=== PATIENT | female | born 1940 | race Caucasian/White ===

== ENCOUNTER 2019-08-07 04:37 | Inpatient (IN) ==
--- NOTE | 2019-08-07 04:56 | EKG Report ---
Test Performed on : 08/07/2019 04:53:03 AM Test Reason : syncope Blood Pressure : / mmHG Vent. Rate : 062 BPM Atrial Rate : 062 BPM P-R Int : 174 ms QRS Dur : 062 ms QT Int : 432 ms P-R-T Axes : 090 085 079 degrees QTc Int : 438 ms Atrial-paced rhythm with premature supraventricular complexes. Possible Anterior infarct (cited on or before 15-JUL-2017) Abnormal ECG When compared with ECG of 15-JUL-2017 12:41, Electronic atrial pacemaker has replaced Sinus rhythm. Nonspecific T wave abnormality no longer evident in Anterolateral leads Unconfirmed Result
--- NOTE | 2019-08-07 05:19 | PROVIDER DOCUMENTATION ---
HPI-General Adult - General Chief Complaint: Syncope Stated Complaint: HIGH BP/SYNCO[PE/RIGHT SHOULDER INJURY Time Seen by Provider: 08/07/19 05:02 Source: patient, family Allergies/Adverse Reactions: Patient Allergies Allergy/AdvReac Type Severity Reaction Status Date / Time codeine Allergy Unknown Unknown Verified 08/07/19 05:03 Penicillins Allergy Unknown Unknown Verified 08/07/19 05:03 Sulfa (Sulfonamide Allergy Unknown Unknown Verified 08/07/19 05:03 Antibiotics) adhesive tape AdvReac Intermediate rips skin Verified 08/07/19 05:03 off Home Medications: Home Medication List Medication Instructions Recorded Confirmed Last Taken Type Apixaban [Eliquis] 2.5 mg PO BID 04/30/18 08/07/19 08/06/19 History Carvedilol 12.5 mg PO BID 08/07/19 08/07/19 08/06/19 History Galantamine HBr [Galantamine ER] 24 mg PO DAILY 08/07/19 08/07/19 08/06/19 History LISINOpril [Prinivil] 10 mg PO DAILY 08/07/19 08/07/19 08/06/19 History Methylcellulose [Fiber] 1,000 mg PO HS 08/07/19 08/07/19 08/06/19 History - History of Present Illness -Gen Adult Nature of Presenting Problems: brought in by EMS. Pt says she always has memory problems. Yesterday afternoon, she had nausea, diarrhea, no vomiting. Her daughter came over to stay with her tonight, was sleeping on floor. Pt says got up twice to go to , no problems. However, this last time, she passed out, injuring her R shoulder. Denies head t rauma, denies LOC, but later, rlates that her daughter told her that she was unresponsive for a brief time, and that is why she called EMS. Denies CP, Denies SOB. Nausea has rsolved. No pain other that R shoulder Daughter called later. Says mother was totally unresponsive, eyes were blank, in fact, she thought mother had Review of Systems - Adult - REVIEW OF SYSTEMS - ADULT Constitutional: reports: no symptoms reported Eyes: reports: no symptoms reported Ears, Nose, Mouth & Throat: reports: no symptoms reported Cardiovascular: reports: no symptoms reported Respiratory: reports: no symptoms reported Gastrointestinal: reports: see HPI Genitourinary: reports: no symptoms reported Musculoskeletal: reports: see HPI Integumentary: reports: no symptoms reported Neurological: reports: see HPI Psychiatric: reports: no symptoms reported Endocrine: reports: no symptoms reported Hematologic/Lymphatic: reports: no symptoms reported Allergic/Immunologic: reports: no symptoms reported Past History - Adult - PAST MEDICAL HISTORY-ADULT Review of Records: reports: Medications Reviewed Major Childhood Illnesses: reports: denies history Cardiovascular: reports: A-Fib, HTN Respiratory: reports: denies history Gastrointestinal: reports: denies history Genitourinary: reports: denies history Musculoskeletal: reports: denies history Neurological: reports: denies history Endocrine/Immune: reports: denies history Physical Exam-General - PHYSICAL EXAM-ADULT Initial Vital Signs Reviewed: Yes - CONSTITUTIONAL General Appearance: appears well, alert, no apparent distress - EYES Eyes: PERRL/EOMI, pink conjunctivae - HEAD, EARS, NOSE, MOUTH & THROAT HENMT: normocephalic/atraumatic, moist mucous membranes, normal ENT inspection, pharynx normal - RESPIRATORY Respiratory: lungs clear, normal breath sounds, no pleuratic chest pain, no respiratory distress - CARDIOVASCULAR Cardiovascular: regular rate, rhythm, no edema - GASTROINTESTINAL (ABDOMEN) Abdominal Exam: normal bowel sounds, non tender, soft - MUSCULOSKELETAL Extremity: tenderness (mod to R humeral head area. No other extremity tenderness) Peripheral Pulses: radial (R): 2+, radial (L): 2+ DTR: bicep (R): 2+, bicep (L): 2+, knee (R): 2+, knee (L): 2+, ankle (R): 2+, ankle (L): 2+ - SKIN Integumentary: normal color, normal turgor, warm/dry - NEUROLOGIC Neurologic: grossly normal, no motor/sensory deficits, other (CN II-XII intact) - PSYCHIATRIC Psych/Mental Status: normal mood/affect, normal thought content, normal thought process, oriented x 3 Progress - PLAN OF CARE/RESULTS Progress/Plan/Lab Results: Vital Signs - 8 hr 08/07/19 04:39 Temperature 97.8 F Pulse Rate 72 Respiratory Rate 18 Blood Pressure 109/61 O2 Sat by Pulse Oximetry 99 Orders Category Date Time Status EKG [EKG] Stat Ther 04/15/20 04:47 Draft Result Diagrams: 08/07/19 05:21 08/07/19 05:21 - REASSESSMENT Reassessment #1 Time Reassessed: 08:18 Status: improving (Seen karel james by me. Case discussed with Dr. Schaffer at shift change, had non-displaced right clavicle fracture and syncopal episode. Awaiting Chest X-ray and labs. Etienne Stevenson, from [employer] came out to interrogate pacemaker and found it to be working correctly without any cardiac events or failures to pace.) Reassessment #2 Time Reassessed: 09:37 Status: improving (Given IV rocephin and zithromax for CAP. Given also ultram for clavicle fracture. Given sling for clavicle fracture) - EKG 1 Time of EKG reading by physician:: 04:55 EKG Read and Signed by:: Thien Schaffer EKG Interpretation (*Must complete 3 of following elements*): Abnormal QRS: poor R wave progression ST Wave: normal - XRAY 1 XRAY: Right XRAY Study: Shoulder Impression: Abnormal (EXAM: SHOULDER-RIGHT HISTORY: fall TECHNIQUE: Shoulder three views including an axillary Y-view COMPARISON: None. FINDINGS: There is a fracture to the distal clavicle at the acromioclavicular joint. No significant separation. No other fracture about the shoulder. IMPRESSION: Nondisplaced distal clavicle fracture. Electronically signed by Greg Tyler 08/07/2019 6:26 AM 08/07/19 0626 Interpreting Physician: Greg Tyler MD Dictated Date/Time: 08/07/19 0623 cc: Thien Schaffer MD; Carolee Arredondo MD) 2 XRAY Study: Chest Impression: Abnormal, See EMR Report ( CHEST-PORTABLE - 08/07/2019 INDICATION: syncope COMPARISON: 02/20/2018 FINDINGS: Stable left-sided pacemaker in good position. There is some faint infiltrate in the lingula. Stable hyperexpanded lungs compatible with COPD. Heart size and pulmonary vascularity is normal. No pneumothorax or pleural effusion. IMPRESSION: Faint infiltrate in the lingula suggesting pneumonia. Advanced COPD. Electronically signed by Jose Herman 08/07/2019 8:54 AM 08/07/19 0854 Interpreting Physician: Jose Herman MD Dictated Date/Time: 08/07/19 0853 cc: Jn France MD; Carolee Arredondo MD) - CT/MRI 2 CT Study: Head Impression: Normal (EXAM: CT HEAD W/O CONTRAST HISTORY: fall, ALOC TECHNIQUE: CT head without contrast COMPARISON: 07/15/2017 FINDINGS: No parenchymal hemorrhage. No epidural or subdural hematoma. No subarachnoid hemorrhage. There are chronic microvascular ischemic changes with possible old lacunar dyspnea the anterior horns of the internal capsules. The appearance is similar to the prior exam. No mass identified on this noncontrasted exam. No hydrocephalus. No skull fracture. IMPRESSION: No hemorrhage. No injury. This exam was performed using automated exposure control, adjustment of mA or kV according to patient size, and/or use of iterative reconstruction technique. Electronically signed by Greg Tyler 08/07/2019 6:22 AM 08/07/19 0622 Interpreting Physician: Greg Tyler MD Dictated Date/Time: 08/07/19 0619 cc: Thien Schaffer MD; Carolee Arredondo MD) - CONSULTS/PCP/HOSPITALIST Notification #1 *Consult/PCP/Hospitalist*: Jewell Time Discussed: 08:57 Consult Disposition: other (will see on floor) #2 Consult: LIZA Horta Time Discussed: 09:38 Consult Disposition: Will see in ED, Admit - CHANGE OF SHIFT REPORT (ED Provider) 1 Report Given and Care Transferred to:: Román Time of Transfer: 07:00 Items Pending: Labs, Other (pacemaker interrogation) Departure - Departure Date of Disposition Decision: 08/07/19 Time of Disposition Decision: 09:39 DIAGNOSIS: Syncope and collapse, Lingular pneumonia Right clavicle fracture Qualifiers: Encounter type: initial encounter Clavicle location: lateral end Fracture type: closed Fracture alignment: nondisplaced Qualified Code(s): S42.034A - Nondisplaced fracture of lateral end of right clavicle, initial encounter for closed fracture Disposition: ADMITTED INPATIENT 09 Certified Medical Emergency: Emergent Condition: Stable Referrals and Follow-Ups: Carolee Arredondo MD [Primary Care Provider] - Jesse Hernandez MD [ACTIVE STAFF PHYSICIAN] - - Critical Care Note This patient required my direct & personal management of CC.: No Attestation - Physician/ KEVAN Attestation Patient care was provided by Advanced Practice Provider:: No The physician spent face to face time with patient:: Yes Advanced Practice Provider documentation review:: Supervising physician onsite and consulted in the evaluation and care of this patient. The physician did have a face to face encounter with the patient.
[2019-08-07 06:19] LABS: BASO# 0.05 X1000 (0.0-0.2); BASO% 0.6 % (0.0-0.8); EOS% 3.8 % (0.0-10.0); HEMATOCRIT 46.1 % (37.0-47.0); HEMOGLOBIN 15.3 g/dL (12.0-16.0); IMM GRAN# 0.04 X1000 (0.0-0.04); IMM GRAN% 0.5 % (0.0-0.5); LYMPH# 1.62 X1000 (1.2-3.4); LYMPH% 20.7 % (20.5-51.1); MCH 30.6 PG (27-31); MCHC 33.2 g/dL (33-37); MCV 92.2 FL (81-99); MONO# 0.45 X1000 (0.11-0.59); MONO% 5.8 % (1.7-9.3); MPV 10.8 FL (7.4-10.4); NEUT# 5.36 X1000 (1.4-6.5); NEUT% 68.6 % (42.2-75.2); PLT 62 X1000 (130-400); RDW 13.9 % (11.5-14.5); WBC 7.82 X1000 (4.8-10.8)
--- NOTE | 2019-08-07 06:24 | Diag Imaging Result Doc PS360 ---
EXAM: CT HEAD W/O CONTRAST HISTORY: fall, ALOC TECHNIQUE: CT head without contrast COMPARISON: 07/15/2017 FINDINGS: No parenchymal hemorrhage. No epidural or subdural hematoma. No subarachnoid hemorrhage. There are chronic microvascular ischemic changes with possible old lacunar dyspnea the anterior horns of the internal capsules. The appearance is similar to the prior exam. No mass identified on this noncontrasted exam. No hydrocephalus. No skull fracture. IMPRESSION: No hemorrhage. No injury. This exam was performed using automated exposure control, adjustment of mA or kV according to patient size, and/or use of iterative reconstruction technique. Electronically signed by Greg Tlyer 08/07/2019 6:22 AM
--- NOTE | 2019-08-07 06:28 | Diag Imaging Result Doc PS360 ---
EXAM: SHOULDER-RIGHT HISTORY: fall TECHNIQUE: Shoulder three views including an axillary Y-view COMPARISON: None. FINDINGS: There is a fracture to the distal clavicle at the acromioclavicular joint. No significant separation. No other fracture about the shoulder. IMPRESSION: Nondisplaced distal clavicle fracture. Electronically signed by Greg Tyler 08/07/2019 6:26 AM
[2019-08-07] MEDS ORDERED: ULTRAM PO ONE (08:23)
[2019-08-07] MEDS ORDERED: TORADOL IV ONE (08:23)
[2019-08-07 08:24] LABS: URINE SOURCE CATH
[2019-08-07] MEDS ORDERED: NS 1,000 ML IV ONE (08:24)
[2019-08-07 08:33] LABS: BILIRUBIN URINE NEGATIVE (NEGATIVE); BLOOD URINE TRACE (NEGATIVE); COLOR YELLOW; GLUCOSE URINE NEGATIVE (NEGATIVE); KETONE URINE TRACE mg/dL (NEGATIVE); LEUKOCYTES URINE NEGATIVE (NEGATIVE); NITRITE URINE NEGATIVE (NEGATIVE); PH URINE 6.5; PROTEIN URINE 100 mg/dL (NEGATIVE); SP GRAVITY URINE 1.024; TURBIDITY URINE CLEAR (CLEAR); UROBILINOGEN URINE NORMAL (NORMAL)
[2019-08-07 08:34] LABS: UR EPITHELIAL CELLS <10 /HPF (<10); URINE BACTERIA NEGATIVE /HPF; URINE RBC <10 /HPF (<10); URINE WBC <10 /HPF (<10)
[2019-08-07 08:36] LABS: UR AMPHETAMINES QUAL NONE DETECTED (NONE DETECT); UR BARBITUATES QUAL NONE DETECTED (NONE DETECT); UR BENZODIAZEPIN QUAL NONE DETECTED (NONE DETECT); UR CANNABINOIDS QUAL NONE DETECTED (NONE DETECT); UR COCAINE QUAL NONE DETECTED (NONE DETECT); UR METHADONE QUAL NONE DETECTED (NONE DETECT); UR OPIATES QUAL NONE DETECTED (NONE DETECT); UR OXYCODONE QUAL NONE DETECTED (NONE DETECT); UR PCP QUAL NONE DETECTED (NONE DETECT)
--- NOTE | 2019-08-07 08:56 | Diag Imaging Result Doc PS360 ---
CHEST-PORTABLE - 08/07/2019 INDICATION: syncope COMPARISON: 02/20/2018 FINDINGS: Stable left-sided pacemaker in good position. There is some faint infiltrate in the lingula. Stable hyperexpanded lungs compatible with COPD. Heart size and pulmonary vascularity is normal. No pneumothorax or pleural effusion. IMPRESSION: Faint infiltrate in the lingula suggesting pneumonia. Advanced COPD. Electronically signed by Jose Herman 08/07/2019 8:54 AM
[2019-08-07 09:20] LABS: AGAP 18; ALB/GLOB RATIO 1.5; ALBUMIN 4.3 g/dL (3.5-5.0); ALKALINE PHOSPHATASE 67 U/L (32-104); BUN 15 mg/dL (8-22); CALCIUM 9.7 mg/dL (8.8-10.2); CHLORIDE 92 mmol/L (98-107); COSMO 264; CREATININE 0.8 mg/dL (0.5-0.9); ESTIMATED GFR > 60; GLUCOSE 144 mg/dL (70-104); GOT 26 U/L (10-30); GPT 14 U/L (10-36); POTASSIUM 4.1 mmol/L (3.5-5.1); SODIUM 130 mmol/L (136-145); TCO2 20 mmol/L (25-35); TOTAL BILIRUBIN 0.59 mg/dL (0.20-1.00); TOTAL PROTEIN 7.2 g/dL (6.3-8.3)
[2019-08-07] MEDS ORDERED: ROCEPHIN 1 GM in NS 50 ML IV ONE (09:33)
[2019-08-07] MEDS ORDERED: ZITHROMAX 500 MG/NS 500 MG/250 ML IVPB IV ONE (09:33)
[2019-08-07] MEDS ORDERED: ZOFRAN IV PRN (09:47)
[2019-08-07] MEDS ORDERED: TAMIFLU PO ONE (10:53)
--- NOTE | 2019-08-07 11:24 | HISTORY AND PHYSICAL ---
CHIEF COMPLAINT: Syncopal episode. HISTORY OF PRESENT ILLNESS: This is an 79-year-old female with a prior history of atrial fibrillation, prior syncopal episodes, as well as hypertension. She presented to the emergency room via EMS after having multiple syncopal episodes witnessed per her daughter. Ms. Madrigal is not a good historian. No family members are present, so this history is taken from the ER chart. According to the ER record, the patient got up to go to the bathroom yesterday and fell. The daughter stated she was responsive when she found her, but she said her right shoulder hurt. They attempted to set her up and it was reported the patient's eyes glazed over and she went limp. It is reported that after about 20 seconds she responded. She had 2 more similar episodes like this and the daughter decided to call 911. On arrival to the emergency room, Ms. Madrigal was alert and oriented, cooperative. PAST MEDICAL HISTORY: 1. Atrial fibrillation on chronic anticoagulation. 2. Pacemaker placement. 3. Prior episodes of syncope. 4. Hypertension. PAST SURGICAL HISTORY: Pacemaker placement, hernia repair, and . SOCIAL HISTORY: Denies alcohol, tobacco, or illicit drug use. She has children that are close and that are very active in her care. ALLERGIES: Codeine, penicillin and sulfa with unknown reactions. The patient thinks that nausea may have been the reactions. HOME MEDICATIONS: A list will be obtained. REVIEW OF SYSTEMS: Discussed with the patient with pertinent positives stated in the HPI. She denied any dizziness, any chest pain, any shortness of breath, palpation, any vomiting, diarrhea, constipation, black or bloody vomitus or stools, any hematuria, dysuria, frequency, urgency. PHYSICAL EXAMINATION: GENERAL: This is an 79-year-old female who is lying on the stretcher in the emergency room in no distress. VITAL SIGNS: Blood pressure is 121/60 with a heart rate of 60, respirations are ranging 18 to 20, temperature is 97.8 degrees with O2 saturations that are 99% to 100% on room air. EYES: Pupils are equal, round, react to light. EOMs are intact. Sclerae are anicteric. HEENT: Head is normocephalic, atraumatic. Mucous membranes are moist. NECK: Supple with trachea midline. CARDIOVASCULAR: Regular rate and rhythm. S1, S2 appreciated. She has no lower extremity edema. PULMONARY: Breath sounds are clear with no increased work of breathing noted. Chest rises and falls symmetrically with respiration. GASTROINTESTINAL: Abdomen is soft, nontender, nondistended with bowel sounds in all 4 quadrants. NEUROLOGIC: She is alert. She is oriented. She follows commands. SKIN: Warm and dry. EXTREMITIES: She does have some tenderness to the right humeral head area with a little edema noted. Peripheral pulses are palpable x4 extremities. LABORATORY: WBC is 7.8 with hemoglobin 15.3, hematocrit 46.1, platelets of 62,000. Sodium 130, potassium 4.1, BUN 15, creatinine 0.8, glucose of 144. DIAGNOSTICS: 1. Chest x-ray revealed faint infiltrate in the lingula suggesting pneumonia, advanced COPD. 2. Right shoulder x-ray reveals nondisplaced distal clavicle fracture. 3. A CT of the head reveals no hemorrhage, no injury. 4. An EKG reveals an atrial paced rhythm at a rate of 62. ASSESSMENT AND PLAN: 1. Syncope. We obtain an echocardiogram. The patient has a [employer] pacemaker. The emergency room has call the employee relations representative about, this will be interrogated. Will do orthostatic vital signs. 2. Pneumonia. Blood cultures have been obtained. Will continue azithromycin and Rocephin as started in the emergency room and further antibiotics will be culture driven. 3. Right clavicle fracture. Dr. Villarreal was spoken to by the emergency room physician. We will consult him. Sling has been placed. We will order neurovascular checks to her right arm. 4. Atrial fibrillation. Aware. 5. Thrombocytopenia. We will review her medications, hold appropriate medications. Will hold Eliquis at present. 6. Hypertension. Will continue her home medications. 7. Further treatments pending hospital course. Dictated by LIZA Esquivel for Keith Ledesma MD cc: LIZA Esquivel MD
[2019-08-07 12:53] LABS: INR 1.21; PROTIME 15.5 Seconds (11.0-16.0)
[2019-08-07 14:44] LABS: BANDS 1 % (0-1); EOS 1 % (1-10); LARGE PLATELETS OCCASIONAL; LYMPHS 18 % (21-51); MONO 7 % (1-9); SEGS 71 % (42-75)
--- NOTE | 2019-08-07 15:42 | HISTORY AND PHYSICAL ---
ADDENDUM REPORT SUBJECTIVE: I have seen and examined Ms. Madrigal today. Ms. Madrigal refers to have been feeling fairly okay until yesterday. Early during the day she felt some nauseation and then later on she had 1 episode of vomiting and profuse diarrhea times just 1 time. She says she went to bed feeling better after she vomited. She woke up early this morning and wanted to go and use the restroom then as soon as she got up from the bed and started walking, she felt kind of lightheaded, dizzy, and then she just fell down. She does not remember the circumstances around the fall, but when she fell she could hear her daughter shouting "momma stay there, I am coming, do not get up." She was brought into the emergency room where she was evaluated. Upon presentation she was found to have a blood pressure of 109/61. Unfortunately, orthostatic vitals were not done. At the time of my encounter, I did an orthostatic myself. Lying down was 152/67 with a pulse of 59, sitting up was 165/74 with a pulse of 60 and standing up was 137/68, so despite the systolic was not down by 20 mm per mercury, it was quite abnormal. OBJECTIVE: General: Current physical exam for the most part is completely unremarkable except for mucous membrane that looks slightly dry. Chest: Clear. Cardiovascular: Regular rate and rhythm. The patient has a pacemaker on the left anterior chest wall. Extremities: No edema. Some bruises on the lower extremity. The patient also has the right upper extremity in an orthopedic sling. IMAGING STUDIES: Including a CT scan of the head showed no hemorrhage. Shoulder x-ray shows nondisplaced distal clavicular fracture. A chest x-ray shows a faint infiltrate in the lingula suggesting pneumonia. There is advanced COPD. The patient's screening for flu is positive for influenza A. ASSESSMENT: 1. Syncope, most likely orthostatic hypotension, however, vasovagal reaction and other causes of neurally mediated syncope cannot be entirely ruled out. For now, we are going to continue with gentle hydration overnight and re-evaluate her orthostatic and then go from there. 2. Faint lingular infiltrate concerning for pneumonia. Patient's flu test is positive. At this point, she does not really show any. She is not complaining of any respiratory symptoms. We will treat her with antibiotics and time Tamiflu and wait for the cultures. 3. Hypertension. 4. Clinical volume depletion associated with hyponatremia and hypochloremia. We will continue with the fluid resuscitation. 5. Thrombocytopenia of unclear etiology. I have called the lab and they did not see any clumping, so this seems to be real. We will repeat the test tomorrow. If it continues to be remarkably low, we will get Hematology/Oncology to evaluate if number continue to be low. For now we are going to do LDH, hepatitis panel and iron studies, B12, folate. Please refer to the details of the history and physical that has been dictated by the POKER MACHINE ATTENDANT in the chart. I have discussed the plan with her. I have also discussed my findings and my plan with Ms. Madrigal and she voiced understanding. cc: Keith Ledesma MD [facility]
[2019-08-07] MEDS: NS 1,000 ML IV SCH (16:12)
--- NOTE | 2019-08-07 16:18 | ORTHOPAEDICS CONSULTATION ---
DATE: 08/07/2019 CHIEF COMPLAINT: Right shoulder pain with syncopal episode. HISTORY OF PRESENT ILLNESS: This is an 79-year-old female with a prior history of atrial fibrillation who came to the emergency department for a syncopal episode witnessed by her daughter. It was noted on one of her x-rays in the emergency department that she had a distal clavicle fracture and they consulted orthopedics to come see the patient. PAST MEDICAL HISTORY: Includes: 1. Atrial fibrillation, with chronic anticoagulants. 2. Pacemaker placement. 3. Syncope. 4. Hypertension. PAST SURGICAL HISTORY: She has had pacemaker placement, hernia repair, section. SOCIAL HISTORY: She denies alcohol, tobacco, or illicit drug use. ALLERGIES: She reports she is allergic to codeine, penicillin, sulfa, and adhesive tape. HOME MEDICATIONS: She does not know her home medications at this time. REVIEW OF SYSTEMS: A 12-point review of systems was performed. Pertinent positives listed in the HPI. PHYSICAL EXAMINATION: General: The patient is awake and alert, sitting in the hospital bed in no acute distress. Vital Signs: Temperature 98.5 degrees, pulse rate 60, respiratory rate 16, blood pressure 111/69, oxygen saturation 100% on room air. HEENT: Head is atraumatic, normocephalic. Mucous membranes are moist. Eyes equal, round, and reactive. Neck: Supple. Cardiovascular: At this time, regular rate and rhythm. Pulmonary: There is equal chest expansion, rise and fall. Gastrointestinal: Abdomen is soft, nontender. Extremity Examination: On right upper extremity exam, there is limited range of motion to the right shoulder due to pain. There is tenderness along the distal clavicle. There is some swelling along the right side of the chest as well. There is no bruising or ecchymosis noted. LABS: White blood cells 7.82, blood cells 5, hemoglobin 15.3, hematocrit 46.1, platelets 62,000. INR 1.21. Sodium 130, potassium 4.1, chloride 92, BUN 15, glucose 144, creatinine is 0.8. DIAGNOSTICS: Shoulder x-ray showed nondisplaced distal clavicle fracture to the right shoulder. Chest x-ray revealed some possible pneumonia, infiltrate in the lungs. CT of the head showed no acute injury and no bleeding. ASSESSMENT: 1. Syncope with fall, possible pacemaker involvement, and right distal clavicle fracture that is nondisplaced. 2. Pneumonia. PLAN: We plan to keep her in a sling for her distal clavicle fracture. She will need to have repeat x-rays and follow up with Dr. Villarreal in 1 week in the office. The medical doctor team is treating her pneumonia. Dictated by LIZA Tyler for Familia Villarreal MD cc: LIZA Tyler MD
[2019-08-07 16:55] LABS: URINE SOURCE CLEAN CATCH
[2019-08-07 17:20] LABS: BILIRUBIN URINE NEGATIVE (NEGATIVE); BLOOD URINE MODERATE (NEGATIVE); COLOR YELLOW; GLUCOSE URINE NEGATIVE (NEGATIVE); KETONE URINE TRACE mg/dL (NEGATIVE); LEUKOCYTES URINE NEGATIVE (NEGATIVE); NITRITE URINE NEGATIVE (NEGATIVE); PROTEIN URINE 30 mg/dL (NEGATIVE); SP GRAVITY URINE 1.029; TURBIDITY URINE CLEAR (CLEAR); UROBILINOGEN URINE NORMAL (NORMAL)
[2019-08-07 18:04] LABS: UR EPITHELIAL CELLS <10 /HPF (<10); URINE BACTERIA NEGATIVE /HPF; URINE RBC <10 /HPF (<10)
[2019-08-07 18:09] LABS: URINE CASTS NONE SEEN; URINE CRYSTALS NONE SEEN; URINE SMALL ROUND CELLS TRANS PRESENT; URINE YEAST NONE SEEN
[2019-08-07] MEDS ORDERED: ELIQUIS PO SCH (21:00)
[2019-08-07] MEDS: FIBERCON PO SCH (21:36)
[2019-08-07] MEDS: COREG PO SCH (21:36)
[2019-08-07] MEDS: TAMIFLU PO SCH (21:36)
[2019-08-08 04:48] LABS: RETIC% 1.27 % (0.8-2.1); RETIC-HE 36.8 PG (28.2-36.6)
[2019-08-08 05:07] LABS: IRON SATURATION 25 %; TIBC 242 ug/dL; TOTAL IRON 60 ug/dL (49-151); UNBOUND IRON 182 ug/dL (112-346)
[2019-08-08 05:23] LABS: FERRITIN 88 ng/mL (13-150)
[2019-08-08] MEDS: NS 1,000 ML IV SCH ×2 (06:34→10:24)
[2019-08-08 07:24] LABS: AGAP 12; ALBUMIN 3.8 g/dL (3.5-5.0); BUN 13 mg/dL (8-22); CALCIUM 8.8 mg/dL (8.8-10.2); CHLORIDE 97 mmol/L (98-107); COSMO 262; CREATININE 0.7 mg/dL (0.5-0.9); ESTIMATED GFR > 60; GLUCOSE 93 mg/dL (70-104); PHOSPHORUS 2.8 mg/dL (2.7-4.5); POTASSIUM 3.7 mmol/L (3.5-5.1); SODIUM 131 mmol/L (136-145); TCO2 22 mmol/L (25-35)
[2019-08-08 08:44] LABS: BASO# 0.06 X1000 (0.0-0.2); BASO% 0.9 % (0.0-0.8); EOS# 0.12 X1000 (0.0-0.7); EOS% 1.9 % (0.0-10.0); HEMATOCRIT 36.7 % (37.0-47.0); HEMOGLOBIN 12.1 g/dL (12.0-16.0); LYMPH# 1.49 X1000 (1.2-3.4); LYMPH% 23.3 % (20.5-51.1); MCH 30.7 PG (27-31); MCV 93.1 FL (81-99); MONO# 0.69 X1000 (0.11-0.59); MONO% 10.8 % (1.7-9.3); MPV 11.3 FL (7.4-10.4); NEUT# 4.04 X1000 (1.4-6.5); NEUT% 63.1 % (42.2-75.2); PLT 168 X1000 (130-400); RBC 3.94 XMIL (4.2-5.4); RDW 13.9 % (11.5-14.5)
[2019-08-08] MEDS: TAMIFLU PO SCH ×2 (10:25→21:25)
[2019-08-08] MEDS: COREG PO SCH ×2 (10:25→21:25)
[2019-08-08] MEDS: PRINIVIL PO SCH (10:25)
[2019-08-08] MEDS: ROCEPHIN 1 GM in NS 50 ML IV SCH (10:25)
[2019-08-08] MEDS: ZITHROMAX PO SCH (10:29)
[2019-08-08 11:56] LABS: HEPATITIS PROFILE ACUTE SEE COMMENTS
--- NOTE | 2019-08-08 12:15 | PROGRESS NOTE ---
DATE: 08/08/2019 SUBJECTIVE: I have seen and examined Ms. Madrigal today. Ms. Madrigal refers to be doing well. Denies any new complaints. She said she has not had any more diarrhea. She has also been up to use the restroom and has not had any dizziness or fall. OBJECTIVE: Vital signs: Blood pressure is 122/75, pulse of 60, respirations 16, temperature is 98.9 degrees. Orthostatic vitals: The patient sitting down, blood pressure was 158/68 and standing up it went up to 163/76. General: Ms. Madrigal is an 79-year-old elderly female. She is in bed, no distress. HEENT: Mucosa is pink, slightly dry. Anicteric. Acyanotic. Neck: Supple. Chest: Clear to auscultation. No crepitations. No rhonchi. There is a pacemaker on the left anterior chest wall. Cardiovascular: Regular rate and rhythm. Gastrointestinal: Abdomen is soft, nontender. Bowel sounds present. Extremities: No pedal edema. Central nervous system: Patient is awake, alert, and oriented x3. No focal deficit. Musculoskeletal: The right upper extremity has an orthopedic sling. ASSESSMENT: 1. Syncope on presentation, presumably from orthostatic hypotension. Vitals have now been corrected. The patient still remains slightly volume depleted. We are going to continue with gentle hydration. 2. Left lingular infiltrate concerning for pneumonia with influenza A positive as well. Patient is on antimicrobials and Tamiflu. 3. Hypertension, controlled. 4. Clinical volume depletion associated with hyponatremia. This is improving with IV fluids. 5. Thrombocytopenia, corrected. I presume this was most likely a lab error. The number is up to 168 this morning. 6. Nondisplaced right distal clavicular fracture. The patient has been evaluated by Orthopedics. PLAN: In general, I think Ms. Madrigal is doing a lot better. We are still waiting for the blood culture result, COVID-19 testing before she will be able to be evaluated by Physical Therapy. She has already been seen by Orthopedics in terms of the right shoulder because of the right nondisplaced distal clavicle fracture and they recommend conservative management. cc: Keith Ledesma MD
--- NOTE | 2019-08-08 16:28 | PROGRESS NOTE ---
DATE: 08/08/2019 ADDENDUM: I have spoken extensively with the daughter today who was there at the time Ms. Madrigal apparently had a syncopal episode. According to the daughter, Ms. Madrigal had been having some low abdominal discomfort, and she attributed it to stomach bug and wanted to go and use the restroom when she passed out. According to the daughter, Ms. Madrigal was looking at her, but was nonresponsive; that went on for a couple of seconds. She tried to get her attention. Ms. Madrigal came back, but then as she tried to lift her to put her somewhere better, she was the same. Eyes just went straight through her. She became unresponsive and she looked pale, but there were no tonic seizures. There was no seizure activity. She did not have any incontinence. The episode lasted for about 30 seconds to 45 seconds which all seems to have been a syncopal episode. Immediately after Ms. Madrigal responded well, that is when they came to the emergency room. Upon talking more with the daughter, I was made aware that she called the pacemaker company. They told her that during the time that Ms. Madrigal was having the stomach discomfort and nauseation, she was in atrial fibrillation. The tracing suggests that she was in atrial fibrillation for about 7-1/2 hours. I have yet to see the tracing myself. I also understand according to the daughter that this is not the first time they have had atrial fibrillation issues, that they have been called before in the past and have been told that Ms. Madrigal was in atrial fibrillation for a couple of seconds to minutes. 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 It appears to me that Ms. Madrigal probably has been in paroxysmal atrial fibrillation that has caused her symptoms, but that has never been captured on any tracing until her heart has been monitored with a pacemaker. The working diagnosis: Syncopal episode as a result of cardiac arrhythmia( Afib) which could have been precipitated because of dehydration, medication, and ongoing pneumonia/influenza. At this point, we are going to get an echocardiogram, and we will repeat the EKG in the morning. Also, repeat her troponins. The magnesium level on admission was normal. I will get Cardiology to evaluate her. We will also get an MRI of the brain just to make sure that there is no neurological explanation. We will continue with the current management including the antimicrobials, antiviral fluid resuscitation, and I will update the daughter as I get more information. cc: Keith Ledesma MD MTDSivan
--- NOTE | 2019-08-08 19:55 | ECHO REPORT ---
ORDER DATE: 08/08/2019 INDICATION: Patient with syncope. Limited study. M-MODE MEASUREMENTS: Left ventricle end diastole: 3.2. Left ventricle end systole: 2.0. Posterior wall: 0.8. Interventricular septum: 0.8. Left atrium: 2.9. Aortic diameter: 2.6. SUMMARY OF 2-DIMENSIONAL IMAGIN. Left ventricular function is normal. Ejection fraction is 68%. The chamber is not dilated. 2. The aortic valve appears to be morphologically normal. 3. The mitral valve also appears to be morphologically normal. 4. The right ventricle appears to be normal. 5. There is no pericardial effusion. 6. The tricuspid valve also appears to be grossly normal. 7. The pulmonic valve also appears to be grossly normal. 8. The atria do not appear to be dilated. 9. Doppler imaging was not used in this study. Clinical correlation recommended. cc: MD Keith Mirza MD
[2019-08-08] MEDS: FIBERCON PO SCH (21:25)
--- NOTE | 2019-08-09 06:44 | Diag Imaging Result Doc PS360 ---
CHEST-PORTABLE - 08/09/2019 INDICATION: dyspnea COMPARISON: 08/07/2019 FINDINGS: Stable pacemaker. Stable COPD changes. No pulmonary edema. Stable faint infiltrate or scarring in the lingula. Heart size is top normal. IMPRESSION: No change from prior. Electronically signed by Jose Herman 08/09/2019 6:41 AM
--- NOTE | 2019-08-09 07:13 | EKG Report ---
Test Performed on : 08/09/2019 06:43:12 AM Test Reason : Afib Blood Pressure : / mmHG Vent. Rate : 061 BPM Atrial Rate : 061 BPM P-R Int : 142 ms QRS Dur : 064 ms QT Int : 408 ms P-R-T Axes : 061 055 021 degrees QTc Int : 410 ms Suspect unspecified pacemaker failure Normal sinus rhythm. Nonspecific ST abnormality Abnormal ECG When compared with ECG of 07-AUG-2019 04:53, (Unconfirmed) Sinus rhythm. has replaced Electronic atrial pacemaker Non-specific change in ST segment in Anterior leads Nonspecific T wave abnormality, improved in Inferior leads Nonspecific T wave abnormality now evident in Anterior leads Confirmed by Samir ESCALANTE, Davie Phillips ([id number]) on 08/09/2019 9:25:09 AM
[2019-08-09 07:34] LABS: HEMATOCRIT 36.9 % (37.0-47.0); HEMOGLOBIN 12.2 g/dL (12.0-16.0); MCH 31.5 PG (27-31); MCHC 33.1 g/dL (33-37); MCV 95.3 FL (81-99); MPV 10.6 FL (7.4-10.4); RBC 3.87 XMIL (4.2-5.4); RDW 14.4 % (11.5-14.5); WBC 6.05 X1000 (4.8-10.8)
[2019-08-09 07:55] LABS: AGAP 9; ALBUMIN 3.4 g/dL (3.5-5.0); BUN 8 mg/dL (8-22); CALCIUM 8.9 mg/dL (8.8-10.2); CHLORIDE 102 mmol/L (98-107); COSMO 273; CREATININE 0.6 mg/dL (0.5-0.9); ESTIMATED GFR > 60; GLUCOSE 89 mg/dL (70-104); POTASSIUM 3.9 mmol/L (3.5-5.1); SODIUM 138 mmol/L (136-145); TCO2 27 mmol/L (25-35)
[2019-08-09] MEDS: ROCEPHIN 1 GM in NS 50 ML IV SCH (08:57)
[2019-08-09] MEDS: COREG PO SCH (08:58)
[2019-08-09] MEDS: TAMIFLU PO SCH (08:58)
[2019-08-09] MEDS: PRINIVIL PO SCH (08:58)
[2019-08-09] MEDS: ZITHROMAX PO SCH (08:58)
[2019-08-09 11:42] VITALS: BP 130/49
[2019-08-09] MEDS: NS 1,000 ML IV SCH (14:56)
--- NOTE | 2019-08-09 16:53 | DISCHARGE SUMMARY ---
ADMISSION DATE: 08/07/2019 DISCHARGE DATE: 08/09/2019 DISPOSITION: Home. FOLLOWUP: 1. Dr. Arredondo. 2. Dr. Cleveland. 3. Dr. Arnoldo Glass. 4. Dr. Villarreal. CONSULTATIONS DURING THIS ADMISSION: Orthopedics was consulted, patient was seen by Dr. Villarreal. ADMISSION DIAGNOSES: 1. Syncope. 2. Pneumonia. 3. Right clavicular fracture. 4. Atrial fibrillation. DIAGNOSES AT THE TIME OF DISCHARGE: 1. Syncopal episode, presumably from orthostatic hypotension versus neuromediated. 2. Left lingular infiltrate concerning for pneumonia with influenza A positive. 3. Hypertension, controlled. 4. Clinical volume depletion. 5. Hyponatremia, resolved. 6. Nondisplaced right distal clavicular fracture. Patient was evaluated by Dr. Villarreal. 7. History of paroxysmal atrial fibrillation. 8. Status post pacemaker placement. 9. History of carotid hypersensitivity syndrome. 10. Chronic obstructive pulmonary disease changes on x-ray. The patient denies any history of tobacco use. 11. Mild cognitive decline. I think this is probably age related and age appropriate. DISCHARGE MEDICATIONS: Apixaban 2.5 b.i.d. Lisinopril 10 mg p.o. daily. Carvedilol 12.5 p.o. b.i.d. Tamiflu 75 mg b.i.d. for 3 more days. Zithromax 250 daily for 5 more days. PRESENTING COMPLAINT: Syncopal episode. HISTORY OF PRESENTING COMPLAINT: Ms. Madrigal is an 79-year-old, female who has a history of paroxysmal atrial fibrillation, prior syncopal episode even leading to bilateral mandibular fractures, status post pacemaker placement, who came to the emergency room after she fell in the bathroom sustaining a trauma to the right shoulder. Upon presenting to the emergency room, she was evaluated and was found to have a nondisplaced fracture to the right distal clavicle. She was put in an orthopedic sling and admitted for further medical care. HOSPITAL COURSE: Ms. Madrigal was initially admitted to isolation unit because of a suspicion of possible COVID infection and also flu positive. She was started on Tamiflu and antibiotics. The COVID test came back negative. She was found also to be remarkably dehydrated on physical exam. She was fluid resuscitated. Her initial orthostatic vitals were abnormal. Subsequently, with adequate fluid resuscitation she got better. She did not have any more signs of wanting to pass out or dizziness upon standing up. Upon talking with the daughter, I got the impression that she understood from the pacemaker company that Ms. Madrigal was in atrial fibrillation for 7 hours, so we consulted Cardiology to evaluate that. However, I also discussed the case with Dr. Arnoldo Glass, who seems to understand that the patient was just in a short period of atrial fibrillation at home and that is old and nothing new, and that the episode that happened had no relationship with when the atrial fibrillation was captured. At any point, I think Ms. Madrigal is now clinically stable. She has not had any more episodes of wanting to black out or falling. All of her blood cultures have come back negative. Urine culture is also negative. I think she had some gastroenteritis because she did have some nauseation and diarrhea. She became dry. She was on blood pressure medications which all came together and dropped her blood pressure and then she had syncope. Unsure if at that time she did have some abnormal irregular heart as well. At any point, I think she is stable and she can be discharged. I would like her to follow up with her primary care physician, her shaper and presser and neurologist. While in the hospital we did a CAT scan of the brain which did not show any acute disease. We wanted to do an MRI, but, unfortunately, because of her pacemaker this was not possible. I have explained this to the daughter and she will follow up with her neurologist on that. Ms. Madrigal's chest x-rays on multiple occasions, even going all the way back to 2013, do show signs of emphysema and COPD. The daughter does not seem to know about days and was very surprised to know that there are changes of COPD, so I have advised that she follows up with Dr. Cleveland or any principal java developer of their choice to have PFTs and also a more thorough evaluation of this findings of the COPD/emphysema. All of the discharge instructions have been discussed with her and she voiced understanding. I have also discussed thoroughly my findings and the plan with the daughter who is also in agreement for discharge today. TIME SPENT: The time spent for discharge is 35 minutes. cc: Keith Ledesma MD
== END 2019-08-09 14:55 | disposition home or self-care (01) | DRG 312 ==
LOC: ED 04:37 → EDIPHOLD 10:04 → 3N 11:12 → 4N 14:40
PROVIDERS: ATTEND Internal Medicine